=== PATIENT | female | born 1965 | race Hispanic/Latino ===

== ENCOUNTER 2021-01-13 19:58 | Inpatient (IN) | payer SELFPAY ==
[~2021-01-13 19:58] MED LIST: Iopamidol-370 76% 500 ML 1 ML ONE
[2021-01-13] MEDS ORDERED: Dexamethasone 10 MG/ML VIAL ONE (20:27)
[2021-01-13 21:00] LABS: #Lymphocytes 0.9 thou/uL (1.20-3.40); #Monocytes 0.4 thou/uL (0.11-0.59); #Neutrophils 9.7 thou/uL (1.40-6.50); %Basophils 0.2 % (0.0-1.0); %Eosinophils 0.1 % (0.0-10.0); %Lymphocytes 7.8 % (21.0-51.0); %Neutrophils 87.9 % (42.0-75.0); Hemoglobin 7.9 g/dL (12.0-16.0); Mean Corpuscular HGB CONC 32.6 g/dL (32.0-36.0); Mean Corpuscular Hemoglobin 31.8 pg (27.0-31.0); Mean Corpuscular Volume 97.5 fL (78.0-98.0); Mean Platelet Volume 8.8 fL (7.4-10.4); Platelet Count 206 thou/uL (130-400); Red Blood Cell (RBC) Count 2.47 mill/uL (4.20-5.40); White Blood Cell (WBC) Count 11.1 thou/uL (4.8-10.8)
[2021-01-13] MEDS ORDERED: Aspirin 325 MG TAB ONE (21:15)
[2021-01-13] MEDS ORDERED: Azithromycin 500 MG VIAL ONE (21:15)
[2021-01-13] MEDS ORDERED: cefTRIAXone\\ROCEPHIN 2 GM VIAL ONE (21:15)
[2021-01-13] MEDS ORDERED: Enoxaparin Sodium 80 MG/0.8 ML SYRINGE ONE (21:16)
[2021-01-13 21:26] LABS: ALT (SGPT) 27 U/L (8-55); AST (SGOT) 31 U/L (5-34); Albumin 3.5 g/dL (3.5-5.0); Alkaline Phosphatase 104 U/L (40-110); Anion Gap 13 mmol/L (10-20); BUN (Urea Nitrogen) 29 mg/dL (9.8-20.1); Bilirubin, Total 0.3 mg/dL (0.2-1.2); CK (CPK) 90 U/L (29-168); Calc. Creatinine Clearance 0 mL/min (70-130); Calcium 8.7 mg/dL (7.8-10.44); Carbon Dioxide 16 mmol/L (22-29); Chloride 106 mmol/L (98-107); Globulin 3.7 g/dL (2.4-3.5); Glucose 199 mg/dL (70-105); Lipase 58 U/L (8-78); Potassium 5.6 mmol/L (3.5-5.1); Protein, Total 7.2 g/dL (6.0-8.3); Sodium 129 mmol/L (136-145)
[2021-01-13 23:03] LABS: SARS-CoV-2 NAA Rapid Test DETECTED (NotDetected)
[2021-01-13] MEDS ORDERED: Benzonatate 100 MG CAP ONE (23:21)
[2021-01-13] MEDS: Benzonatate 100 MG CAP PO PRN (23:24)
[2021-01-13] MEDS ORDERED: Ondansetron ODT 4 MG TAB PO PRN (23:55)
[2021-01-13] MEDS ORDERED: Calcium Carbonate 500 MG ChewTAB PO PRN (23:55)
[2021-01-14] MEDS ORDERED: Dextrose 5% in Water 1,000 ML IV PRN (00:11)
[2021-01-14] MEDS ORDERED: Dextrose 50% Abboject 50 ML SYRINGE SLOW IVP PRN (00:11)
[2021-01-14] MEDS ORDERED: Acetaminophen 325 MG TAB ONE (00:12)
[2021-01-14] MEDS ORDERED: Lactated Ringer's 1,000 ML IV SCH (00:15)
[2021-01-14] MEDS: Acetaminophen 325 MG TAB PO PRN (00:31)
[2021-01-14 00:44] VITALS: BMI 31.1
[2021-01-14 02:48] LABS: #Lymphocytes 0.4 thou/uL (1.20-3.40); #Monocytes 0.1 thou/uL (0.11-0.59); %Basophils 0.1 % (0.0-1.0); %Lymphocytes 3.3 % (21.0-51.0); %Monocytes 0.6 % (0.0-10.0); %Neutrophils 95.9 % (42.0-75.0); Hemoglobin 8.1 g/dL (12.0-16.0); Mean Corpuscular HGB CONC 31.3 g/dL (32.0-36.0); Mean Corpuscular Volume 98.9 fL (78.0-98.0); Mean Platelet Volume 8.9 fL (7.4-10.4); Platelet Count 211 thou/uL (130-400); RBC Distribution Width 10.9 % (11.5-14.5); Red Blood Cell (RBC) Count 2.62 mill/uL (4.20-5.40); White Blood Cell (WBC) Count 10.5 thou/uL (4.8-10.8)
[2021-01-14 03:01] LABS: Hemoglobin A1c 6.3 % (4.0-6.0)
[2021-01-14 03:44] LABS: Anion Gap 17 mmol/L (10-20); BUN (Urea Nitrogen) 28 mg/dL (9.8-20.1); Calc. Creatinine Clearance 44 mL/min (70-130); Calcium 8.3 mg/dL (7.8-10.44); Carbon Dioxide 13 mmol/L (22-29); Chloride 108 mmol/L (98-107); Glucose 261 mg/dL (70-105); Potassium 6.2 mmol/L (3.5-5.1); Sodium 132 mmol/L (136-145)
[2021-01-14] MEDS ORDERED: Furosemide 20 MG TAB PO SCH (04:00)
[2021-01-14] MEDS ORDERED: Lactated Ringer's 500 ML IV SCH (04:00)
[2021-01-14] MEDS ORDERED: HumaLOG 300 UNITS/3 ML VIAL SC SCH (05:15)
[2021-01-14] MEDS ORDERED: Calcium Gluc 4.6 MEQ/10 ML (100 MG/ML) SLOW IVP SCH (05:30)
[2021-01-14] MEDS: HumaLOG 300 UNITS/3 ML VIAL SC PRN ×4 (05:58→22:30)
[2021-01-14 07:31] LABS: Anion Gap 14 mmol/L (10-20); BUN (Urea Nitrogen) 28 mg/dL (9.8-20.1); Calc. Creatinine Clearance 45 mL/min (70-130); Calcium 8.6 mg/dL (7.8-10.44); Carbon Dioxide 15 mmol/L (22-29); Chloride 109 mmol/L (98-107); Glucose 280 mg/dL (70-105); Potassium 5.5 mmol/L (3.5-5.1); Sodium 132 mmol/L (136-145)
[2021-01-14] MEDS ORDERED: Mineral Oil Sterile 10 ML VIAL ONE (08:36)
[2021-01-14] MEDS: Enoxaparin Sodium 30 MG/0.3 ML SYRINGE SC SCH (10:03)
[2021-01-14] MEDS: Dexamethasone 4 MG TAB PO SCH (10:03)
[2021-01-14 15:44] LABS: Creatinine, Urine 21.16 mg/dL (47-110); Potassium, Urine 14.7 mmol/L
[2021-01-14 19:20] LABS: Anion Gap 15 mmol/L (10-20); BUN (Urea Nitrogen) 29 mg/dL (9.8-20.1); Calc. Creatinine Clearance 45 mL/min (70-130); Carbon Dioxide 15 mmol/L (22-29); Chloride 108 mmol/L (98-107); Glucose 422 mg/dL (70-105); Potassium 5.3 mmol/L (3.5-5.1); Sodium 133 mmol/L (136-145)
[2021-01-15 05:45] LABS: ALT (SGPT) 24 U/L (8-55); AST (SGOT) 26 U/L (5-34); Albumin 3.2 g/dL (3.5-5.0); Alkaline Phosphatase 90 U/L (40-110); Anion Gap 13 mmol/L (10-20); BUN (Urea Nitrogen) 32 mg/dL (9.8-20.1); Bilirubin, Total Less than 0.2 mg/dL (0.2-1.2); CRP (Inflammatory) 16.65 mg/dL (= or < 0.5); Calc. Creatinine Clearance 46 mL/min (70-130); Calcium 9.1 mg/dL (7.8-10.44); Carbon Dioxide 16 mmol/L (22-29); Chloride 110 mmol/L (98-107); Globulin 3.9 g/dL (2.4-3.5); Glucose 353 mg/dL (70-105); Potassium 5.3 mmol/L (3.5-5.1); Protein, Total 7.1 g/dL (6.0-8.3); Sodium 134 mmol/L (136-145)
[2021-01-15] MEDS: HumaLOG 300 UNITS/3 ML VIAL SC PRN ×4 (06:06→20:46)
[2021-01-15] MEDS: Dexamethasone 4 MG TAB PO SCH (09:39)
[2021-01-15] MEDS: Enoxaparin Sodium 30 MG/0.3 ML SYRINGE SC SCH (09:39)
[2021-01-15] MEDS ORDERED: REMDESIVIR 200 MG in Sodium Chloride 0.9% 250 ML 210 ML IV SCH (12:00)
[2021-01-15] MEDS: Acetaminophen 325 MG TAB PO PRN (12:12)
[2021-01-15] MEDS: Losartan 25 MG TAB PO SCH (12:12)
[2021-01-15] MEDS: REMDESIVIR 200 MG in Sodium Chloride 0.9% 250 ML 210 ML IV SCH (13:57)
[2021-01-15] MEDS: metFORMIN 500 MG TAB PO SCH (17:08)
[2021-01-15] MEDS ORDERED: hydrALAZINE 10 MG TAB PO PRN (18:12)
[2021-01-15] MEDS: Lantus 1000 UNITS/10 ML VIAL SC SCH (20:45)
[2021-01-16] MEDS: Acetaminophen 325 MG TAB PO PRN (00:50)
[2021-01-16] MEDS: Benzonatate 100 MG CAP PO PRN (00:50)
[2021-01-16] MEDS ORDERED: Melatonin 3 MG TAB PO PRN (01:37)
[2021-01-16] MEDS: HumaLOG 300 UNITS/3 ML VIAL SC PRN ×5 (05:50→21:30)
[2021-01-16 06:20] LABS: ALT (SGPT) 23 U/L (8-55); AST (SGOT) 30 U/L (5-34); Albumin 3.1 g/dL (3.5-5.0); Alkaline Phosphatase 98 U/L (40-110); Anion Gap 14 mmol/L (10-20); BUN (Urea Nitrogen) 37 mg/dL (9.8-20.1); Bilirubin, Total 0.3 mg/dL (0.2-1.2); Calc. Creatinine Clearance 44 mL/min (70-130); Carbon Dioxide 16 mmol/L (22-29); Chloride 110 mmol/L (98-107); Glucose 324 mg/dL (70-105); Potassium 5.3 mmol/L (3.5-5.1); Protein, Total 7.1 g/dL (6.0-8.3); Sodium 135 mmol/L (136-145)
[2021-01-16] MEDS ORDERED: TOCILIZUMAB IVPB PRN (08:37)
[2021-01-16] MEDS: metFORMIN 500 MG TAB PO SCH (08:57)
[2021-01-16] MEDS: Dexamethasone 4 MG TAB PO SCH (08:58)
[2021-01-16] MEDS: REMDESIVIR 100 MG in Sodium Chloride 0.9% 250 ML 230 ML IV SCH (08:58)
[2021-01-16] MEDS: Enoxaparin Sodium 40 MG/0.4 ML SYRINGE SC SCH (08:58)
[2021-01-16] MEDS: Losartan 25 MG TAB PO SCH (08:58)
[2021-01-16] MEDS ORDERED: Lantus 1000 UNITS/10 ML VIAL SC SCH (09:00)
[2021-01-16] MEDS ORDERED: BARICITINIB 1 MG TAB PO SCH (09:30)
[2021-01-16] MEDS: metFORMIN 850 MG TAB PO SCH (17:08)
[2021-01-16] MEDS: Lantus 1000 UNITS/10 ML VIAL SC SCH (21:31)
[2021-01-17] MEDS: HumaLOG 300 UNITS/3 ML VIAL SC PRN ×4 (05:43→20:20)
[2021-01-17 05:50] LABS: ALT (SGPT) 36 U/L (8-55); AST (SGOT) 39 U/L (5-34); Alkaline Phosphatase 85 U/L (40-110); Anion Gap 14 mmol/L (10-20); BUN (Urea Nitrogen) 35 mg/dL (9.8-20.1); Bilirubin, Total 0.3 mg/dL (0.2-1.2); Calc. Creatinine Clearance 61 mL/min (70-130); Calcium 9.2 mg/dL (7.8-10.44); Carbon Dioxide 15 mmol/L (22-29); Chloride 108 mmol/L (98-107); Globulin 3.8 g/dL (2.4-3.5); Glucose 333 mg/dL (70-105); Potassium 4.8 mmol/L (3.5-5.1); Protein, Total 6.8 g/dL (6.0-8.3); Sodium 132 mmol/L (136-145)
[2021-01-17] MEDS ORDERED: Lantus 1000 UNITS/10 ML VIAL SC SCH ×2 (09:00→21:00)
[2021-01-17] MEDS ORDERED: Amlodipine 5 MG TAB PO SCH (09:00)
[2021-01-17] MEDS: Enoxaparin Sodium 40 MG/0.4 ML SYRINGE SC SCH (10:04)
[2021-01-17] MEDS: REMDESIVIR 100 MG in Sodium Chloride 0.9% 250 ML 230 ML IV SCH (10:04)
[2021-01-17] MEDS: guaiFENesin ER 600 MG TAB PO SCH ×2 (10:05→20:17)
[2021-01-17] MEDS: BARICITINIB 1 MG TAB PO SCH (10:05)
[2021-01-17] MEDS: metFORMIN 850 MG TAB PO SCH ×2 (10:05→17:56)
[2021-01-17] MEDS: Dexamethasone 4 MG TAB PO SCH (10:06)
[2021-01-18 04:55] LABS: ALT (SGPT) 32 U/L (8-55); AST (SGOT) 26 U/L (5-34); Albumin 3.2 g/dL (3.5-5.0); Alkaline Phosphatase 98 U/L (40-110); Anion Gap 16 mmol/L (10-20); BUN (Urea Nitrogen) 39 mg/dL (9.8-20.1); Bilirubin, Total 0.3 mg/dL (0.2-1.2); Calc. Creatinine Clearance 65 mL/min (70-130); Calcium 9.1 mg/dL (7.8-10.44); Carbon Dioxide 14 mmol/L (22-29); Chloride 108 mmol/L (98-107); Globulin 3.8 g/dL (2.4-3.5); Glucose 287 mg/dL (70-105); Sodium 133 mmol/L (136-145)
[2021-01-18] MEDS: HumaLOG 300 UNITS/3 ML VIAL SC PRN ×4 (06:14→20:27)
[2021-01-18] MEDS ORDERED: Lantus 1000 UNITS/10 ML VIAL SC SCH (08:53)
[2021-01-18] MEDS: REMDESIVIR 100 MG in Sodium Chloride 0.9% 250 ML 230 ML IV SCH (09:02)
[2021-01-18] MEDS: Amlodipine 10 MG TAB PO SCH (09:03)
[2021-01-18] MEDS: BARICITINIB 1 MG TAB PO SCH (09:04)
[2021-01-18] MEDS: Dexamethasone 4 MG TAB PO SCH (09:04)
[2021-01-18] MEDS: guaiFENesin ER 600 MG TAB PO SCH ×2 (09:04→20:26)
[2021-01-18] MEDS: metFORMIN 850 MG TAB PO SCH ×2 (09:04→17:40)
[2021-01-18] MEDS: Enoxaparin Sodium 40 MG/0.4 ML SYRINGE SC SCH (09:05)
[2021-01-18] MEDS: Lantus 1000 UNITS/10 ML VIAL SC SCH (09:12)
[2021-01-18 09:14] LABS: #Lymphocytes 1.3 thou/uL (1.20-3.40); #Monocytes 0.9 thou/uL (0.11-0.59); #Neutrophils 8.6 thou/uL (1.40-6.50); %Basophils 0.2 % (0.0-1.0); %Eosinophils 0.1 % (0.0-10.0); %Lymphocytes 11.7 % (21.0-51.0); %Monocytes 8.3 % (0.0-10.0); %Neutrophils 79.8 % (42.0-75.0); Hemoglobin 9.5 g/dL (12.0-16.0); Mean Corpuscular HGB CONC 30.8 g/dL (32.0-36.0); Mean Corpuscular Hemoglobin 29.8 pg (27.0-31.0); Platelet Count 333 thou/uL (130-400); RBC Distribution Width 11.3 % (11.5-14.5); Red Blood Cell (RBC) Count 3.18 mill/uL (4.20-5.40); White Blood Cell (WBC) Count 10.7 thou/uL (4.8-10.8)
[2021-01-18 10:57] LABS: Iron 35 ug/dL (50-170); Iron Binding Capacity, Total 244 mcg/dL (265-497)
[2021-01-18 11:23] LABS: Ferritin 584.94 ng/mL (10-291)
[2021-01-19 05:05] LABS: #Lymphocytes 1.2 thou/uL (1.20-3.40); #Monocytes 0.8 thou/uL (0.11-0.59); %Eosinophils 0.1 % (0.0-10.0); %Lymphocytes 10.9 % (21.0-51.0); %Monocytes 6.8 % (0.0-10.0); %Neutrophils 82.2 % (42.0-75.0); Hemoglobin 9.4 g/dL (12.0-16.0); Mean Corpuscular HGB CONC 31.8 g/dL (32.0-36.0); Mean Corpuscular Hemoglobin 31.1 pg (27.0-31.0); Mean Corpuscular Volume 97.7 fL (78.0-98.0); Mean Platelet Volume 8.2 fL (7.4-10.4); Platelet Count 415 thou/uL (130-400); RBC Distribution Width 11.3 % (11.5-14.5); Red Blood Cell (RBC) Count 3.04 mill/uL (4.20-5.40); White Blood Cell (WBC) Count 10.9 thou/uL (4.8-10.8)
[2021-01-19 05:34] LABS: ALT (SGPT) 29 U/L (8-55); AST (SGOT) 21 U/L (5-34); Albumin 3.1 g/dL (3.5-5.0); Alkaline Phosphatase 94 U/L (40-110); Anion Gap 14 mmol/L (10-20); BUN (Urea Nitrogen) 38 mg/dL (9.8-20.1); Bilirubin, Total 0.3 mg/dL (0.2-1.2); Calc. Creatinine Clearance 69 mL/min (70-130); Carbon Dioxide 16 mmol/L (22-29); Chloride 108 mmol/L (98-107); Globulin 3.7 g/dL (2.4-3.5); Glucose 158 mg/dL (70-105); Potassium 4.8 mmol/L (3.5-5.1); Protein, Total 6.8 g/dL (6.0-8.3); Sodium 133 mmol/L (136-145)
[2021-01-19] MEDS ORDERED: Ferrous Sulfate 325 MG TAB PO SCH ×2 (09:30→13:00)
[2021-01-19] MEDS: REMDESIVIR 100 MG in Sodium Chloride 0.9% 250 ML 230 ML IV SCH (11:23)
[2021-01-19] MEDS: Enoxaparin Sodium 40 MG/0.4 ML SYRINGE SC SCH (11:24)
[2021-01-19] MEDS: BARICITINIB 1 MG TAB PO SCH (11:24)
[2021-01-19] MEDS: guaiFENesin ER 600 MG TAB PO SCH ×2 (11:25→21:07)
[2021-01-19] MEDS: Amlodipine 10 MG TAB PO SCH (11:25)
[2021-01-19] MEDS: Dexamethasone 4 MG TAB PO SCH (11:25)
[2021-01-19] MEDS: metFORMIN 850 MG TAB PO SCH ×2 (11:27→17:25)
[2021-01-19] MEDS: Lantus 1000 UNITS/10 ML VIAL SC SCH ×3 (11:28→21:04)
[2021-01-19] MEDS: HumaLOG 300 UNITS/3 ML VIAL SC PRN ×2 (17:26→21:06)
[2021-01-20 05:46] LABS: #Lymphocytes 1.1 thou/uL (1.20-3.40); #Neutrophils 10.1 thou/uL (1.40-6.50); %Eosinophils 0.2 % (0.0-10.0); %Lymphocytes 8.8 % (21.0-51.0); %Monocytes 8.3 % (0.0-10.0); %Neutrophils 82.7 % (42.0-75.0); Mean Corpuscular HGB CONC 31.3 g/dL (32.0-36.0); Mean Corpuscular Hemoglobin 30.1 pg (27.0-31.0); Mean Corpuscular Volume 96.1 fL (78.0-98.0); Mean Platelet Volume 7.6 fL (7.4-10.4); Platelet Count 500 thou/uL (130-400); RBC Distribution Width 11.3 % (11.5-14.5); Red Blood Cell (RBC) Count 3.33 mill/uL (4.20-5.40); White Blood Cell (WBC) Count 12.2 thou/uL (4.8-10.8)
[2021-01-20 06:11] LABS: ALT (SGPT) 26 U/L (8-55); AST (SGOT) 15 U/L (5-34); Albumin 3.1 g/dL (3.5-5.0); Alkaline Phosphatase 87 U/L (40-110); Anion Gap 15 mmol/L (10-20); BUN (Urea Nitrogen) 36 mg/dL (9.8-20.1); Bilirubin, Direct 0.2 mg/dL (0.1-0.3); Bilirubin, Total 0.3 mg/dL (0.2-1.2); Calc. Creatinine Clearance 66 mL/min (70-130); Calcium 8.9 mg/dL (7.8-10.44); Carbon Dioxide 16 mmol/L (22-29); Chloride 105 mmol/L (98-107); Globulin 3.6 g/dL (2.4-3.5); Glucose 196 mg/dL (70-105); Potassium 4.9 mmol/L (3.5-5.1); Protein, Total 6.7 g/dL (6.0-8.3); Sodium 131 mmol/L (136-145)
[2021-01-20] MEDS: BARICITINIB 1 MG TAB PO SCH (08:33)
[2021-01-20] MEDS: Dexamethasone 4 MG TAB PO SCH (08:34)
[2021-01-20] MEDS: metFORMIN 850 MG TAB PO SCH ×2 (08:34→15:45)
[2021-01-20] MEDS: Amlodipine 10 MG TAB PO SCH (08:34)
[2021-01-20] MEDS: Enoxaparin Sodium 40 MG/0.4 ML SYRINGE SC SCH ×2 (08:35→10:06)
[2021-01-20] MEDS: guaiFENesin ER 600 MG TAB PO SCH ×2 (08:35→19:51)
[2021-01-20] MEDS: Lantus 1000 UNITS/10 ML VIAL SC SCH ×2 (08:36→19:51)
[2021-01-20] MEDS: HumaLOG 300 UNITS/3 ML VIAL SC PRN ×2 (15:50→19:49)
[2021-01-21 04:57] LABS: #Eosinphils 0.1 thou/uL (0.0-0.7); #Lymphocytes 1.6 thou/uL (1.20-3.40); #Monocytes 1.3 thou/uL (0.11-0.59); #Neutrophils 14.2 thou/uL (1.40-6.50); %Eosinophils 0.5 % (0.0-10.0); %Lymphocytes 9.5 % (21.0-51.0); %Monocytes 7.4 % (0.0-10.0); %Neutrophils 82.5 % (42.0-75.0); Hemoglobin 10.4 g/dL (12.0-16.0); Mean Corpuscular HGB CONC 32.5 g/dL (32.0-36.0); Mean Corpuscular Volume 95.3 fL (78.0-98.0); Mean Platelet Volume 7.5 fL (7.4-10.4); Platelet Count 547 thou/uL (130-400); RBC Distribution Width 11.4 % (11.5-14.5); Red Blood Cell (RBC) Count 3.36 mill/uL (4.20-5.40); White Blood Cell (WBC) Count 17.3 thou/uL (4.8-10.8)
[2021-01-21 05:21] LABS: ALT (SGPT) 22 U/L (8-55); AST (SGOT) 13 U/L (5-34); Albumin 3.1 g/dL (3.5-5.0); Alkaline Phosphatase 88 U/L (40-110); Anion Gap 12 mmol/L (10-20); BUN (Urea Nitrogen) 41 mg/dL (9.8-20.1); Bilirubin, Total 0.3 mg/dL (0.2-1.2); Calc. Creatinine Clearance 67 mL/min (70-130); Calcium 9.5 mg/dL (7.8-10.44); Carbon Dioxide 19 mmol/L (22-29); Chloride 105 mmol/L (98-107); Globulin 3.8 g/dL (2.4-3.5); Glucose 119 mg/dL (70-105); Potassium 4.7 mmol/L (3.5-5.1); Protein, Total 6.9 g/dL (6.0-8.3); Sodium 131 mmol/L (136-145)
[2021-01-21] MEDS ORDERED: Ferrous Sulfate 325 MG TAB PO SCH (09:00)
[2021-01-21] MEDS: BARICITINIB 1 MG TAB PO SCH (09:04)
[2021-01-21] MEDS: Dexamethasone 4 MG TAB PO SCH (09:04)
[2021-01-21] MEDS: metFORMIN 850 MG TAB PO SCH ×2 (09:04→15:40)
[2021-01-21] MEDS: Amlodipine 10 MG TAB PO SCH (09:04)
[2021-01-21] MEDS: Enoxaparin Sodium 40 MG/0.4 ML SYRINGE SC SCH (09:05)
[2021-01-21] MEDS: Lantus 1000 UNITS/10 ML VIAL SC SCH ×2 (09:05→19:54)
[2021-01-21] MEDS: guaiFENesin ER 600 MG TAB PO SCH ×2 (09:05→19:51)
[2021-01-22 05:42] LABS: ALT (SGPT) 25 U/L (8-55); AST (SGOT) 21 U/L (5-34); Albumin 3.1 g/dL (3.5-5.0); Alkaline Phosphatase 87 U/L (40-110); Anion Gap 16 mmol/L (10-20); BUN (Urea Nitrogen) 42 mg/dL (9.8-20.1); Bilirubin, Total 0.3 mg/dL (0.2-1.2); Calc. Creatinine Clearance 68 mL/min (70-130); Calcium 9.3 mg/dL (7.8-10.44); Carbon Dioxide 16 mmol/L (22-29); Chloride 106 mmol/L (98-107); Globulin 3.9 g/dL (2.4-3.5); Glucose 117 mg/dL (70-105); Sodium 133 mmol/L (136-145)
[2021-01-22 05:54] LABS: Hemoglobin 10.9 g/dL (12.0-16.0); Mean Corpuscular HGB CONC 31.7 g/dL (32.0-36.0); Mean Corpuscular Hemoglobin 30.1 pg (27.0-31.0); Mean Platelet Volume 7.4 fL (7.4-10.4); Platelet Count 589 thou/uL (130-400); RBC Distribution Width 11.2 % (11.5-14.5); White Blood Cell (WBC) Count 21.7 thou/uL (4.8-10.8)
[2021-01-22 06:48] LABS: Band 3 % (5-11); Lymphocytes 6 % (21-51); MDiff Complete? YES; Monocytes 4 % (0-10); Neutrophil 87 % (42-75)
[2021-01-22] MEDS: BARICITINIB 1 MG TAB PO SCH (08:24)
[2021-01-22] MEDS: Dexamethasone 4 MG TAB PO SCH (08:25)
[2021-01-22] MEDS: metFORMIN 850 MG TAB PO SCH (08:25)
[2021-01-22] MEDS: guaiFENesin ER 600 MG TAB PO SCH (08:25)
[2021-01-22] MEDS: Enoxaparin Sodium 40 MG/0.4 ML SYRINGE SC SCH (08:25)
[2021-01-22] MEDS: Amlodipine 10 MG TAB PO SCH (08:25)
[2021-01-22] MEDS: Lantus 1000 UNITS/10 ML VIAL SC SCH (08:26)
[2021-01-22 12:22] VITALS: BP 123/61; TEMP 98.5
== END 2021-01-22 16:36 | disposition home or self-care (01) | DRG 177 ==
LOC: ERS 19:58 → ERHOLD 21:42 → 2SW 01-14 01:47
PROVIDERS: ADMIT Student in an Organized Health Care Education/Training Program; ATTEND Student in an Organized Health Care Education/Training Program
PROC: 8E0ZXY6 Isolation (ICD-10-PCS; principal; 2021-01-13)
PROC: 3E0333Z Introduction of Anti-inflammatory into Peripheral Vein, Percutaneous Approach (ICD-10-PCS; 2021-01-13)
DX: U07.1 COVID-19 (principal); J96.01 Acute respiratory failure with hypoxia; J12.82 Pneumonia due to coronavirus disease 2019; N17.9 Acute kidney failure, unspecified; E87.1 Hypo-osmolality and hyponatremia; N18.9 Chronic kidney disease, unspecified; R19.7 Diarrhea, unspecified; E11.22 Type 2 diabetes mellitus with diabetic chronic kidney disease; I12.9 Hypertensive chronic kidney disease with stage 1 through stage 4 chronic kidney disease, or unspecified chronic kidney disease; E87.5 Hyperkalemia; D63.1 Anemia in chronic kidney disease; Z79.84 Long term (current) use of oral hypoglycemic drugs; Z79.899 Other long term (current) drug therapy; Z83.3 Family history of diabetes mellitus
CPT/HCPCS: 0240U; 36415; 36416; 71045; 71275; 80048; 80053; 80076; 82550; 82570; 82607; 82728; 82746; 83036; 83540; 83550; 83690; 83880; 83930; 83935; 84133; 84145; 84300; 84484; 85025; 85379; 86140; 87324; 87449; 93005; 93010; 96365; 96367; 96372; 96375; J0456; J0696; J1100; J1650; J1815; J2001; J7050; J7120; J8540; Q9967